=== PATIENT | female | born 1955 | race Caucasian/White ===

== ENCOUNTER 2020-06-18 11:03 | Emergency (ER) | payer OTHER, SELFPAY ==
[2020-06-18 11:10] VITALS: BP 128/75; PULSE 79; RESP 18; TEMP 36.3; O2SAT 97
--- NOTE | 2020-06-18 11:38 | PC.NURSE ---
This RN into pts room. Pt laying on bed crying. This RN asked pt what is going on and pt states I am just sad, having family issues . When asked what family issues are going on pt states that she has been taking care of her grandchildren while her daughter and son in law work. Pt states that has had increased concerns of catching COVID and made these concerns aware to her daughter and son in law. Per pt daughter and son in law flipped out and has decided to stop talking to them. Pt states she has been shunned by daughter. Pt states she feels like she doesn't have a good support system at home. PT states has offered to self isolate himself in basement in order of Pt to see her grandchildren but daughter has declined. PT has a daughter in [place] and a son in [place]. Pt states that she did not have intents of killing herself today but told God I know I am going to take some pills and drink some wine, if you want to take me fine but if you dont then i will understand . Pt states she is tired dont want to do it anymore Pt is crying and saying she wants to speak with Jose her soon. is at bedside and is tearful. Informed pt of process of getting pt medically cleared and calling out a manager of case to speak with pt. Pt states she understands. This RN asked pt if she wanted her in room and pt states yes, she does. Pt is placed in scrubs No sitter needed per [place] Suicide screening. Charge nurse informed of this
--- NOTE | 2020-06-18 11:54 | PC.NURSE ---
Spoke with Tk at poison control. Per Tk just supportive care is needed for this pt at this time.
--- NOTE | 2020-06-18 11:55 | PC.NURSE ---
While getting patient into green scrubs, was assisting. I explained all belongings need to removed from the room but he said it was critical they remained with him in the room. I saw he had a bottle of pills in his hand, trying to hide them while rummaging through his 's purse. Linette then slipped her cell phone under her leg. I told her she could not keep that in the room. The said he wanted to stay but that the belongings needed to stay with him. I go the charge nurse to explain the procedure, and the chose to leave with the belongings. I informed Aleksandra and Ani/nurse of what happened.
--- NOTE | 2020-06-18 12:14 | ECG_ITS ---
Measurements Intervals [place] Rate: 69 P: 33 MT: 167 QRS: -23 QRSD: 86 T: 17 QT: 408 QTc: 437 Interpretive Statements SINUS RHYTHM INCOMPLETE RIGHT BUNDLE BRANCH BLOCK DELAYED PRECORDIAL R/S TRANSITION BORDERLINE T WAVE ABNORMALITY- ANTERIOR LEADS BORDERLINE ECG Electronically Signed On 06-18-2020 13:37:29 CDT by Jordin Rosen D.O.
[2020-06-18 12:40] LABS: Basophils Percent Auto 0.6 % (0.2-1.2); Eosinophils Absolute Auto 0.5 K/mm3 (0-0.3); Eosinophils Percent Auto 7.9 % (0-4.4); Hemoglobin 14.3 g/dL (12.0-15.0); Immature Granulocyte Absolute 0.01 K/mm3 (0.00-0.031); Immature Granulocyte Percent A 0.2 % (0-0.5); Lymphocytes Absolute Auto 1.84 K/mm3 (0.9-3.2); Lymphocytes Percent Auto 29.7 % (18.3-44.2); Mean Corpuscular HGB Conc 32.5 g/dl (32-36); Mean Corpuscular Hemoglobin 29.7 pg (26-34); Mean Corpuscular Volume 91.3 fl (80-100); Mean Platelet Volume 9.1 fl (7.4-10.4); Monocytes Absolute Auto 0.4 K/mm3 (0.1-0.6); Monocytes Percent Auto 6.1 % (2.6-8.5); Neutrophils Absolute Auto 3.4 K/mm3 (1.3-6.7); Neutrophils Percent Auto 55.5 % (45.5-73.1); Platelet Count Result 295 k/mm3 (150-375); Red Blood Count 4.82 M/mm3 (4.2-5.4); Red Cell Distribution Width 12.4 % (11.5-14.5); White Blood Count 6.2 K/mm3 (4.5-10.0)
[2020-06-18 12:48] LABS: Add Urine Microscopic? YES; Appearance Urine Clear (Clear); Bilirubin Urine Negative (Negative); Blood Urine 1+ (Negative); Color Urine Colorless (Yellow); Glucose Urine UA Negative (Negative); Ketones Urine Negative (Negative); Leukocyte Esterase Ur 1+ LEU/UL (Negative); Nitrate Urine Negative (Negative); Protein Urine Negative (Negative); Squamous Epithelial Cell Urine Rare /hpf (Few); Urobilinogen Urine Negative mg/dL (<2.0); WBC Urine 0-3 /hpf
[2020-06-18 12:49] LABS: Acetaminophen < 10 ug/mL (10-30); Salicylate < 1.0 mg/dL (2-20); Specific Grav Ur 1.003 (1.001-1.035)
[2020-06-18 12:52] LABS: Alanine Aminotransferase 28 U/L (4-35); Albumin Level 4.9 g/dL (3.5-5.1); Alkaline Phosphatase 97 U/L (38-126); Anion Gap 11 mmol/L (8-16); Aspartate Amino Transferase 36 U/L (14-36); Bilirubin,Total 0.4 mg/dL (0.2-1.3); Blood Urea Nitrogen 13 mg/dL (7-17); Calcium 9.8 mg/dL (8.4-10.2); Carbon Dioxide 27 mmol/L (22-30); Chloride 106 mmol/L (98-107); Estimated CRCL calculation 64 ml/min; Estimated Glomerular Filt Rate > 60; Ethanol 103 mg/dL (<10); Glucose 90 mg/dL (65-105); Potassium 4.2 mmol/L (3.4-5.0); Sodium 144 mmol/L (137-145)
[2020-06-18 13:00] LABS: Amphetamine Screen Urine Negative (Negative); Barbiturate Screen Urine Negative (Negative); Benzodiazepines Screen Urine Positive (Negative); Cannabinoid Screen Urine Negative (Negative); Cocaine Screen Urine Negative (Negative); Methadone Screen Urine Negative (Negative); Opiate Screen Urine Negative (Negative); Phencyclidine Screen Urine Negative (Negative)
--- NOTE | 2020-06-18 13:02 | ED.PSYCH ---
HPI - Psych General Chief Complaint: Psychiatric Symptoms <Sandrine Louis MD - Last Filed: 06/19/20 23:24> Stated Complaint: lethargy <Sandrine Louis MD - Last Filed: 06/19/20 23:24> Time Seen by Provider: 06/18/20 12:11 <Sandrine Louis MD - Last Filed: 06/19/20 23:24> Source: patient <Sandrine Louis MD - Last Filed: 06/19/20 23:24> Mode of arrival: EMS <Sandrine Louis MD - Last Filed: 06/19/20 23:24> Limitations: no limitations <Sandrine Louis MD - Last Filed: 06/19/20 23:24> History of Present Illness HPI Narrative: This is a 64 year old female with history of anxiety who presents for evaluation of possible overdose. Patient states she has bee having family issues. Last night she took 5 tabs of her Xanax with the thought that she wanted to end things . She admits she wanted to end her life. She also reports taking a xanax tablet at 730 am and another at 9 am this morning with a glass of wine. Patient was found on floor by difficulty to arouse. Patient denies previous history of depression or suicide attempt. She reports she drinks 4 glasses of wine per day. <Sandrine Louis MD - Last Filed: 06/19/20 23:24> Related Data Home Medications: Home Medications Medication Instructions Recorded Confirmed dorzolamide 22.3 mg-timolol 6.8 1 drop EACH EYE BID 05/13/19 mg/mL eye drops latanoprost 0.005 % eye drops 1 drop EACH EYE DAILY 05/14/19 <Sandrine Louis MD - Last Filed: 06/19/20 23:24> Allergies/Adverse Reactions: Allergies Allergy/AdvReac Type Severity Reaction Status Date / Time levofloxacin Allergy Unknown unknown Verified 05/14/19 09:14 <Sandrine Louis MD - Last Filed: 06/19/20 23:24> Review of Systems Review of Systems: All systems reviewed & are unremarkable except as noted in HPI and below <Sandrine Louis MD - Last Filed: 06/19/20 23:24> [facility] Past Medical History Medical History: Medical History (Updated 06/18/20 @ 23:21 by Sandrine Louis MD) Anxiety <Sandrine Louis MD - Last Filed: 06/19/20 23:24> Surgical History Surgical History: Surgical History (Updated 06/18/20 @ 13:07 by Sandrine Louis MD) H/O tubal ligation <Sandrine Louis MD - Last Filed: 06/19/20 23:24> Family History Family History: Family History (Updated 11/05/14 @ 17:50 by DOCTOR UNKNOWN) Other Family history of pancreatic cancer <Sandrine Louis MD - Last Filed: 06/19/20 23:24> Social History Social History: Social History Smoking status: Never smoker Smoking end date: 02/06/78 Alcohol intake: current Substance use type: prescription drug <Sandrine Louis MD - Last Filed: 06/19/20 23:24> Exam Const: General: no acute distress and alert <Sandrine Louis MD - Last Filed: 06/19/20 23:24> Orientation/consciousness: patient oriented x3 <Sandrine Louis MD - Last Filed: 06/19/20 23:24> Eyes: EOM: EOMs intact bilaterally <Sandrine Louis MD - Last Filed: 06/19/20 23:24> Chest: Chest palpation & inspection: normal inspection of the chest <Sandrine Louis MD - Last Filed: 06/19/20 23:24> Resp: Effort & Inspection: normal respiratory effort and no retractions <Sandrine Louis MD - Last Filed: 06/19/20 23:24> Auscultation: clear to auscultation bilaterally <Sandrine Louis MD - Last Filed: 06/19/20 23:24> Cardio: Rate: regular rate and not bradycardic <Sandrine Louis MD - Last Filed: 06/19/20 23:24> Rhythm: regular rhythm <Sandrine Louis MD - Last Filed: 06/19/20 23:24> Heart sounds: no murmurs <Sandrine Louis MD - Last Filed: 06/19/20 23:24> GI: GI Palp: Yes Soft to palpation, No Tenderness to palpation present (GI) and No Guarding due to palpation present (GI) <Sandrine Louis MD - Last Filed: 06/19/20 23:24> Auscultation: normal bowel sounds <Sandrine Louis MD - Last Filed: 06/19/20 23:24> Skin: General skin exam
--- NOTE | 2020-06-18 14:22 | PC.NURSE ---
Tk from [place] poison control called wanting up date on pt.
[2020-06-18 15:46] LABS: Ethanol 35 mg/dL (<10)
--- NOTE | 2020-06-18 16:29 | PC.NURSE ---
Pt is medically cleared per Dr. Louis. Called crisis and spoke with Nga. Nga states she will contact a returned case inspector and let them know.
--- NOTE | 2020-06-18 18:08 | PC.NURSE ---
crisis here to see pt
[2020-06-18 19:58] VITALS: BP 145/76; PULSE 101; RESP 18; O2SAT 100
--- NOTE | 2020-06-18 20:55 | PC.NURSE ---
Contacted Poison control to get case number. Spoke with EVELYNE Chung at poison control, was given case number of #[id number].
--- NOTE | 2020-06-18 22:02 | PC.NURSE ---
pt accepted at [facility] pending COVID results. paperwork also faxed to [facility] for them to review.
--- NOTE | 2020-06-18 23:06 | PC.NURSE ---
brought more pt belongings. Another pt belongings bag labeled and stored in cabinet at this time.
--- NOTE | 2020-06-19 05:20 | PC.NURSE ---
Updated pt spouse.
--- NOTE | 2020-06-19 07:10 | PC.NURSE ---
Report received from EVELYNE Torres. Pt currently eating breakfast.
--- NOTE | 2020-06-19 08:11 | PC.NURSE ---
Call to pt's home at [phone] at request of patient to ask for glasses and bible be brought to her. Message left on identifying voicemail.
--- NOTE | 2020-06-19 09:45 | PC.NURSE ---
Pt asleep on stretcher.
--- NOTE | 2020-06-19 10:30 | PC.NURSE ---
Pt asked about delay, explained again that awaiting COVID swab.
--- NOTE | 2020-06-19 14:23 | PC.NURSE ---
Pt eating dinner tray. Denies other needs at present.
--- NOTE | 2020-06-19 16:00 | PC.NURSE ---
Pt status unchanged. Appears to be asleep on stretcher.
--- NOTE | 2020-06-19 17:11 | PC.NURSE ---
Pt continues to rest on stretcher. Denies needs at present. Continue to await covid result.
[2020-06-19 18:57] VITALS: BP 129/71; PULSE 56; RESP 16; O2SAT 95
--- NOTE | 2020-06-19 19:09 | PC.NURSE ---
Call to [facility] @ [phone]. States to call them if the covid test is negative and they possibly will take the patient.
--- NOTE | 2020-06-19 19:21 | PC.NURSE ---
Continue to await covid results. Report to EVELYNE Daly, to continue care.
[2020-06-19 19:37] LABS: SARS-CoV-2 RNA PCR Negative
--- NOTE | 2020-06-19 20:23 | PC.NURSE ---
spoke with ciera at [facility] they will accept pt pending insurance card copy and voluntary paperwork is received. they will fax it to us at this time.
--- NOTE | 2020-06-19 20:47 | PC.NURSE ---
verbal order from dr wood to enter night time medication doses, latanoprost, dorzolamide, escitalopram.
[2020-06-19] MEDS: ESCITALOPRAM OXALATE 10 MG TABLET PO (23:06)
[2020-06-19] MEDS: LATANOPROST 0.005% OP SOLN 2.5 ML BTL 1 DROP EACH EYE (23:07)
--- NOTE | 2020-06-19 23:14 | PC.NURSE ---
RN spoke with Bella @ [place] - rn to rn report [phone] vega accepting.
--- NOTE | 2020-06-19 23:21 | PC.NURSE ---
RN report given to EVELYNE BARNEY @ [facility]. Pt will be going to room 308-A, Dr. Paulson accepting physician at this time.
--- NOTE | 2020-06-20 01:39 | PC.NURSE ---
rn report given to [facility]. care of pt transferred to [facility] at this time. pt belongings x 2 bags given to [facility] warehouse delivery driver.
[2020-06-20 01:40] VITALS: BP 127/70; PULSE 70; RESP 16; TEMP 36.6; O2SAT 100
== END 2020-06-20 01:41 ==
PROVIDERS: General Practice; Emergency Provider Emergency Medicine; PCP Internal Medicine
DX: F32.9 Major depressive disorder, single episode, unspecified (principal); Z20.822 Contact with and (suspected) exposure to COVID-19; F41.9 Anxiety disorder, unspecified; I45.10 Unspecified right bundle-branch block; R94.31 Abnormal electrocardiogram [ECG] [EKG]
CPT/HCPCS: 36415; 80053; 80307; 81001; 84443; 85025; 93005; 99285; A9270; C9803; U0003; U0005

== ENCOUNTER → 2020-10-15 10:00 | Outpatient (CLI) | payer OTHER, SELFPAY ==
--- NOTE | ~2020-10-15 | MM_ITS ---
EXAMINATION: MM screening elizabeth BI w frandy HISTORY: Screening mammogram TECHNIQUE: Craniocaudal and mediolateral oblique 3-D tomosynthesis images were obtained and synthetic 2-D images were generated. CAD analysis was submitted and interpreted. COMPARISON: 04/17/2015, 04/04/2014 bilateral digital screening mammogram examinations BREAST PARENCHYMAL COMPOSITION: There are scattered areas of fibroglandular density. FINDINGS: There is no evidence of suspicious mass, calcification, or architectural distortion to sugg est malignancy in either breast. There has been no suspicious interval change. IMPRESSION: 1. No mammographic evidence of malignancy. 2. Recommend routine screening mammography in one year. BI-RADS Category 1: Negative Reviewed, dictated and finalized at location A.
== END ==
DX: Z12.31 Encounter for screening mammogram for malignant neoplasm of breast (principal)
CPT/HCPCS: 77063; 77067

== ENCOUNTER → 2021-07-27 10:21 | Outpatient (CLI) | payer MEDICARE, SELFPAY ==
--- NOTE | ~2021-07-27 | US_ITS ---
EXAMINATION: US soft tissue head and neck DATE: 07/27/2021 11:13 INDICATION: Left-sided neck mass TECHNIQUE: Multiple grayscale and Doppler ultrasound images of the thyroid and the region of concern at the left lateral base of the neck were obtained. COMPARISON: 11/28/2016 FINDINGS: The right thyroid lobe measures 4.2 x 1.3 x 1.6 cm. The left thyroid lobe measures 4.1 x 1.0 x 1.3 c m. There are a few subcentimeter nodules in both the left and right thyroid lobes which are wider th an tall with smooth margins. The largest measuring 6 cm in maximal diameter with anechoic with software computer specialist ior acoustic enhancement consistent with a benign TI RADS 1 nodule. The remainder all measuring <6 mm appear more hypoechoic likely due to their small size. Although also most likely representing cystic TI RADS 1 nodules, could not exclude a solid (TI-RADS 4, moderately suspicious , FNA if >=1.5 cm, an nual followup is >=1 cm) nodule. Normal appearance to the subcutaneous tissues at the region of the reported left neck mass with no ly mphadenopathy, abnormal masses or fluid collections identified. IMPRESSION: 1. No significant change in multiple small thyroid nodules likely but predominantly cystic and with n one meeting threshold for either biopsy or follow-up. 2. No abnormal masses or fluid collections identified at the region of concern at the left neck. Reviewed, dictated and finalized at location B. IMPRESSION: 1. No significant change in multiple small thyroid nodules likely but predomina ntly cystic and with none meeting threshold for either biopsy or follow-up. 2. No abnormal masses or fluid collections identified at the region of concern at the left neck.
--- NOTE | ~2021-07-27 | DEXA_ITS ---
Bone Density Report Name: BRENT STARR Age: 66 Sex: Female Ethnicity: White Date of : 1955 Indication: osteopenia; parental hip fracture; height loss; postmenopaual Referring Provider: TONG COYLE Study: Bone densitometry was performed. Exam Date: July 27, 2021 Accession number: [id number] Bone Density: Region BMD T-score Z-score Classification AP Spine (L1-L4) 0.846 -1.8 -0.1 Osteopenia Femoral Neck (Left) 0.767 -0.7 0.8 Normal Total Hip (Left) 0.841 -0.8 0.4 Normal Femoral Neck (Right) 0.736 -1.0 0.5 Normal Total Hip (Right) 0.894 -0.4 0.8 Normal Total Hip Mean 0.868 -0.6 0.6 Normal World Health Organization criteria for BMD impression classify patients as: Normal (T-score at or above -1.0), Osteopenia (T-score between -1.0 and -2.5), or Osteoporosis (T-score at or below -2.5). 10-year Fracture Risk(1): Major Osteoporotic Fracture 18% Hip Fracture 0.9% Reported Risk Factors: [place] (), Neck BMD=0.736, BMI=25.7, parental fracture, alcohol use (1) FRAX(R) Version 3.08. Fracture probability calculated for an untreated patient. Fracture probability may be lower if the patient has received treatment. Previous Exams: Region Exam Age BMD T-score BMD Change BMD Change Date g/cm2 vs Baseline vs Previous AP Spine(L1-L4) 07/27/2021 66 0.846 -1.8 -0.121* -0.036* 04/20/2018 62 0.882 -1.5 -0.085* -0.085* 05/05/2008 52 0.967 -0.7 Total Hip(Left) 07/27/2021 66 0.841 -0.8 -0.071* -0.017 04/20/2018 62 0.858 -0.7 -0.054* -0.054* 05/05/2008 52 0.912 -0.2 Total Hip(Right) 07/27/2021 66 0.894 -0.4 -0.083* -0.015 04/20/2018 62 0.909 -0.3 -0.067* -0.067* 05/05/2008 52 0.977 0.3 *Denotes significance at 95% confidence level, LSC for AP Spine = 0.022 g/cm2, LSC for Total Hip = 0.027 g/cm2 Clinical Information Provided by Patient: Parent has had a hip fracture Has 3 or more alcoholic drinks per day Has used the following medications: Vitamin D, Calcium, MTV Patient maximum height was 66 Menopause Age: 55 Drinks caffeinated beverages Onset of menses at age 17 Number of children 3 Impression: The patient has low bone mass, based on the Total Spine T-score. The patient has an estimated ten-year risk of hip fracture of 0.9% and an estimated ten-year risk of major fracture of 18%, based on the WHO FR
== END ==
PROVIDERS: PCP Internal Medicine; Visit Provider Internal Medicine
DX: Z78.0 Asymptomatic menopausal state (principal); R22.1 Localized swelling, mass and lump, neck; M85.88 Other specified disorders of bone density and structure, other site
CPT/HCPCS: 76536; 77080

== ENCOUNTER 2022-01-06 00:46 | Day surgery (SDC) | payer MEDICARE, SELFPAY ==
[2021-12-23 13:33] VITALS: BMI 24.9
[2022-01-06 07:07] VITALS: BP 140/72; PULSE 83; RESP 16; TEMP 36.1; O2SAT 98
[2022-01-06] MEDS: LACTATED RINGERS 1,000 ML 150 ML IV CONT (07:15)
--- NOTE | 2022-01-06 07:41 | WPDANESEPPF ---
Anes - Initial Pre Proc Eval Procedure: Operation Date: 01/06/22 08:00 Proposed Procedures p Colonoscopy - Sarath Fry MD Date/Time: 01/06/22 07:41 Surgeon: Sarath Fry MD Pre Op Diagnosis: melena, Hx of rectal polyp Patient Data Age: 66 Gender: F Height: 1.65 m Weight: 69.6 kg Last Vital Signs Temp 36.1 C L 01/06/22 07:07 Pulse 83 01/06/22 07:07 Resp 16 01/06/22 07:07 BP 140/72 01/06/22 07:07 Pulse Ox 98 01/06/22 07:07 O2 Del Method Room Air 01/06/22 07:07 Allergies Allergy/AdvReac Type Severity Reaction Status Date / Time levofloxacin Allergy Unknown unknown Verified 01/06/22 07:02 Home Medications Medication Instructions Recorded Confirmed Type dorzolamide 22.3 mg-timolol 6.8 1 drop ophthalmic (eye) BID 05/13/19 01/06/22 History mg/mL eye drops latanoprost 0.005 % eye drops 1 drop ophthalmic (eye) DAILY 05/14/19 12/23/21 History escitalopram oxalate 10 mg tablet See Rx Instructions .Route 03/09/20 01/06/22 Rx .COMPLEX #90 tabs buspirone 5 mg tablet 5 mg PO QHS 07/21/21 12/23/21 History cholecalciferol (vitamin D3) 25 25 mcg PO DAILY 07/21/21 01/06/22 History mcg (1,000 unit) capsule calcium carbonate 260 mg calcium 260 mg PO DAILY 11/18/21 01/06/22 History (648 mg) tablet multivitamin 1 tablet PO DAILY 11/18/21 01/06/22 History Patient hx anesthesia problems: none Family hx anesthesia problems: other (uncertain of issues) Results Review: All pre-operative results and documents have been reviewed as part of the pre-operative evaluation. [facility] Past Medical History Medical History Allergies Anxiety GERD (gastroesophageal reflux disease) Hx of migraines IBS (irritable bowel syndrome) Surgical History Surgical History H/O tubal ligation Family History Family History Father Pancreatic cancer Hypertension Diabetes mellitus Mother Hypertension Heart disease Grandparent Diabetes mellitus Depression Heart disease Breast cancer Other Family history of pancreatic cancer Social History Social History Smoking packs per day: 0.25 Smoking cigarettes per day: 5.0 Years smoked: 3 Smoking pack-years: 0.75 Smoking status: Never smoker Tobacco type: cigarettes Second hand tobacco smoke exposure: No Smoking end date: 02/06/78 Alcohol intake: current Drinks per week: 20 Alcohol use details: 3 GLASSES WINE PER DAY Substance use: never Substance use type: does not use Living arrangements: with family Spiritual care concerns: No Anes - Eval Final PreProcedure Day of Procedure 01/06/22 07:41 Patient weight: normal Heart: regular rate and rhythm Lungs: clear to auscultation Airway: Mallampati scale class II Neurological: alert and oriented Last oral intake: >/= 8 hours ASA classification: II Emergent: no Anesthetic plan: proceed Anesthesia type and monitoring: general GIVS and standard monitoring Results Review: All pre-operative results and documents have been reviewed as part of the pre-operative evaluation. Informed Consent: The patient's anesthetic plan and its attendant risks and benefits were discussed with the patient/family/POA. Questions were solicited and answers provided to the satisfaction of the patient/family/POA.
--- NOTE | 2022-01-06 08:05 | PM.HPGS ---
History of Present Illness History of Present Illness Consent: Risks, benefits, and alternatives have been discussed and questions answered. Patient agrees to proceed with procedure. Chief complaint: melena, Hx of rectal polyp Narrative: Linette Wilson is a 66 year old female Presents for screening colonoscopy. Patient has a history of rectal polyps 3 years ago. Patient also noted to have hemorrhoids at that time. Polyps were a tubular adenoma, benign polyp. Family history is significant both mother and father have had colon polyps. Patient presents today for screening colonoscopy. She intermittently has had bright red blood per rectum. Most recent episode several months ago. This has been attributed to hemorrhoids. Family history as stated. Review of Systems Review of Systems: Review of systems noncontributory. [facility] Past Medical History Medical History Allergies Anxiety GERD (gastroesophageal reflux disease) Hx of migraines IBS (irritable bowel syndrome) Surgical History Surgical History H/O tubal ligation Family History Family History Father Pancreatic cancer Hypertension Diabetes mellitus Mother Hypertension Heart disease Grandparent Diabetes mellitus Depression Heart disease Breast cancer Other Family history of pancreatic cancer Social History Social History Smoking packs per day: 0.25 Smoking cigarettes per day: 5.0 Years smoked: 3 Smoking pack-years: 0.75 Smoking status: Never smoker Tobacco type: cigarettes Second hand tobacco smoke exposure: No Smoking end date: 02/06/78 Alcohol intake: current Drinks per week: 20 Alcohol use details: 3 GLASSES WINE PER DAY Substance use: never Substance use type: does not use Living arrangements: with family Spiritual care concerns: No Meds Home Medications and Allergies Home Medications Medication Instructions Recorded Confirmed Type dorzolamide 22.3 mg-timolol 6.8 1 drop ophthalmic (eye) BID 05/13/19 01/06/22 History mg/mL eye drops latanoprost 0.005 % eye drops 1 drop ophthalmic (eye) DAILY 05/14/19 12/23/21 History escitalopram oxalate 10 mg tablet See Rx Instructions .Route 03/09/20 01/06/22 Rx .COMPLEX #90 tabs buspirone 5 mg tablet 5 mg PO QHS 07/21/21 12/23/21 History cholecalciferol (vitamin D3) 25 25 mcg PO DAILY 07/21/21 01/06/22 History mcg (1,000 unit) capsule calcium carbonate 260 mg calcium 260 mg PO DAILY 11/18/21 01/06/22 History (648 mg) tablet multivitamin 1 tablet PO DAILY 11/18/21 01/06/22 History Allergies Allergy/AdvReac Type Severity Reaction Status Date / Time levofloxacin Allergy Unknown unknown Verified 01/06/22 07:02 Vital Signs Vital Signs - 24 hr 01/06/22 07:07 Temperature 97.0 F L Pulse Rate 83 Respiratory Rate 16 Blood Pressure 140/72 Pulse Oximetry 98 Oxygen Delivery Room Air Exam Narrative: Physical exam reveals patient to be alert. Vital signs stable. HEENT exam is unremarkable. Patient is anicteric. Lungs are clear to auscultation and percussion. Heart is without murmur or extra sounds. Abdomen bowel sounds are present soft nontender with no organomegaly. Digital external rectal exam is normal. Assessment and Plan Assessment and plan (1) Screening for colon cancer: Code(s): Z12.11 - Encounter for screening for malignant neoplasm of colon Status: Acute Assessment and Plan: Patient presents today for screening colonoscopy. She has a prior history of tubular adenomatous colon polyp 2019. Family history is significant both mother and father have had colon polyps. Patient has occasionally have bright red blood per rectum attributed to hemorrhoids. Plan for high-fiber di
[2022-01-06 08:43] VITALS: BP 117/59; PULSE 69; RESP 26; O2SAT 94
[2022-01-06 08:53] VITALS: BP 113/59; PULSE 65; RESP 19; O2SAT 99
[2022-01-06 09:03] VITALS: BP 126/63; PULSE 70; RESP 18; O2SAT 100
== END 2022-01-06 09:20 | disposition home or self-care (01) ==
PROVIDERS: PCP Family Medicine; Visit Provider Internal Medicine Gastroenterology
PROC: 0DJD8ZZ Inspection of Lower Intestinal Tract, Via Natural or Artificial Opening Endoscopic (ICD-10-PCS; CPT 45378; principal; 2022-01-06 08:00)
DX: Z12.11 Encounter for screening for malignant neoplasm of colon (principal); K64.8 Other hemorrhoids; K57.30 Diverticulosis of large intestine without perforation or abscess without bleeding; K92.1 Melena; Z83.71 Family history of colonic polyps; Z86.010 Personal history of colon polyps; F41.9 Anxiety disorder, unspecified; Z87.891 Personal history of nicotine dependence
CPT/HCPCS: G0105; J2704; J7120

== ENCOUNTER 2022-02-16 17:25 | Emergency (ER) | payer MEDICARE, SELFPAY ==
--- NOTE | ~2022-02-16 | XR_ITS ---
EXAM: XR knee LT 2V DATE: 02/16/2022 17:57 HISTORY: KNEE PAIN, NO INJURY, WOKE UP IN PAIN, SEVERE . COMPARISON: None available. FINDINGS: Decreased mineralization. No fracture or dislocation. No lytic or blastic lesion. Mild tri compartmental osteoarthritis of the left knee. No erosion or periosteal change. Soft tissues within n ormal limits. IMPRESSION: No acute osseous finding in the left knee. Reviewed, dictated and finalized at location K. N AGENT
[2022-02-16 17:34] VITALS: BP 140/71; PULSE 114; RESP 20; TEMP 37.3; O2SAT 98
--- NOTE | 2022-02-16 17:50 | ED.LOWEXIN ---
HPI - Extremity Injury (Lower) General Chief Complaint: Extremity Injury, Lower Stated Complaint: L KNEE PAIN Time Seen by Provider: 02/16/22 17:50 Source: patient, RN notes reviewed and old records reviewed Mode of arrival: ambulatory Limitations: no limitations History of Present Illness HPI Narrative: 66-year-old female who presents to [facility] with complaints of pain to her left knee which started about 1 hour after she went to bed last night making it difficult to get any rest. Patient reports that went up and down some steps yesterday taking some Glide ornaments down but denies any injury to her knee. Patient reports that when she woke up this morning she had a temperature of 100F and she can hardly bend knee and increased pain with any movement. Patient has palpable acute tenderness to the medial aspect of her left knee and some warmth but no acute redness or any streaking of redness up leg. Patient reports that she took dual action medication that contains Ibuprofen and Tylenol at 0930 this morning. Patient denies any cough sore throat ,congestion, nausea ,vomiting or diarrhea or any body aches. Patient does drink wine daily denies any history of gout. MD complaint: other (left medial knee pain) Onset (ago): day(s) (last night ) Severity scale (1-10): 9 Treatments prior to arrival: NSAIDS and other (Tylenol medication) Related Data Home Medications Medication Instructions Recorded Confirmed latanoprost 0.005 % eye drops 1 drop ophthalmic (eye) DAILY 05/14/19 02/16/22 cholecalciferol (vitamin D3) 25 25 mcg PO DAILY 07/21/21 02/16/22 mcg (1,000 unit) capsule multivitamin 1 tablet PO DAILY 11/18/21 02/16/22 Allergies Allergy/AdvReac Type Severity Reaction Status Date / Time levofloxacin Allergy Unknown unknown Verified 02/16/22 19:06 Review of Systems Review of Systems: CONSTITUTIONAL: reports low grade fever of 100F, no chills, or sweats. EYES: Denies visual changes, redness, or discharge. ENT: Denies rhinorrhea, congestion, sore throat, or otalgia. CARDIOVASCULAR: Denies chest pain, palpitations, or edema. RESPIRATORY: Denies cough or dyspnea. GASTROINTESTINAL: Denies abdominal pain, nausea, vomiting, or diarrhea. GENITOURINARY: Denies dysuria or hematuria. SKIN: Denies rash or itching. MUSCULOSKELETAL: Denies back pain, positive for pain to the medial aspect of left knee especially on bending of knee, palpation of medial knee area with warmth noted. NEUROLOGIC: Denies headache, numbness, or weakness. PSYCHIATRIC: Denies anxiety or depression. All systems reviewed & are unremarkable except as noted in HPI and below PMFSH Past Medical History Medical History Allergies Anxiety GERD (gastroesophageal reflux disease) Hx of migraines IBS (irritable bowel syndrome) Surgical History Surgical History H/O tubal ligation Family History Family History Father Pancreatic cancer Hypertension Diabetes mellitus Mother Hypertension Heart disease Grandparent Diabetes mellitus Depression Heart disease Breast cancer Other Family history of pancreatic cancer Social History Social History Smoking packs per day: 0.25 Smoking cigarettes per day: 5.0 Years smoked: 3 Smoking pack-years: 0.75 Smoking status: Never smoker Tobacco type: cigarettes Second hand tobacco smoke exposure: No Smoking end date: 02/06/78 Alcohol intake: current Drinks per week: 20 Alcohol use details: 3 GLASSES WINE PER DAY Substance use: never Substance use type: does not use Spiritual care concerns: No Comments At time of signature, agree with nursing past medical, surgical, social and family history. There is no relevant family history pertinent to the presenting complaint
[2022-02-16 18:30] VITALS: PULSE 110; RESP 18; O2SAT 99
== END 2022-02-16 18:30 | disposition short-term general hospital (02) ==
PROVIDERS: Emergency Provider Registered Nurse; PCP Family Medicine
DX: M25.562 Pain in left knee (principal); Z87.891 Personal history of nicotine dependence; K21.9 Gastro-esophageal reflux disease without esophagitis; M10.9 Gout, unspecified
CPT/HCPCS: 73560; 99213; G0463

== ENCOUNTER 2022-02-16 19:00 | Emergency (ER) | payer MEDICARE, SELFPAY ==
[2022-02-16 19:02] VITALS: BP 150/81; PULSE 103; RESP 18; TEMP 36.6; O2SAT 98
[2022-02-16 19:35] VITALS: BP 133/91; PULSE 92; RESP 18; O2SAT 98
[2022-02-16] MEDS: LIDOCAINE 5% PATCH 1 PATCH TRANSDERM (20:00)
[2022-02-16] MEDS: KETOROLAC 30 MG/ML VIAL (*BKC) IM (20:02)
--- NOTE | 2022-02-16 20:12 | ED.EXTPRO ---
HPI - Extremity Problem General Chief complaint: Extremity Problem,Nontraumatic Stated complaint: knee pain Time Seen by Provider: 02/16/22 19:30 History of Present Illness HPI Narrative: Patient presents after being sent from urgent care for further evaluation of her left knee pain, that already obtained an x-ray which was negative but sent her here due to their concern for possible septic knee (?). Patient denies any recent use other than she did use it quite a bit recently climbing, no swelling or redness of the knee. She took Advil at home with improvement in her symptoms. Worse when she walks Related Data Home Medications Medication Instructions Recorded Confirmed latanoprost 0.005 % eye drops 1 drop ophthalmic (eye) DAILY 05/14/19 02/16/22 cholecalciferol (vitamin D3) 25 25 mcg PO DAILY 07/21/21 02/16/22 mcg (1,000 unit) capsule multivitamin 1 tablet PO DAILY 11/18/21 02/16/22 Allergies Allergy/AdvReac Type Severity Reaction Status Date / Time levofloxacin Allergy Unknown unknown Verified 02/16/22 19:35 Review of Systems Review of Systems: CONST: Some chills at home HEENT: No sore throat C/V: No chest pain RESP: No cough GI: No nausea or vomiting : No dysuria. M/S: Knee pain SKIN: No rash. NEURO: [No headache or focal numbness or weakness] PSYCH: [No depression] [facility] Past Medical History Medical History Allergies Anxiety GERD (gastroesophageal reflux disease) Hx of migraines IBS (irritable bowel syndrome) Surgical History Surgical History H/O tubal ligation Family History Family History Father Pancreatic cancer Hypertension Diabetes mellitus Mother Hypertension Heart disease Grandparent Diabetes mellitus Depression Heart disease Breast cancer Other Family history of pancreatic cancer Social History Social History Smoking packs per day: 0.25 Smoking cigarettes per day: 5.0 Years smoked: 3 Smoking pack-years: 0.75 Smoking status: Never smoker Tobacco type: cigarettes Second hand tobacco smoke exposure: No Smoking end date: 02/06/78 Alcohol intake: current Drinks per week: 20 Alcohol use details: 3 GLASSES WINE PER DAY Substance use: never Substance use type: does not use Spiritual care concerns: No Exam Narrative: EXAMINATION OF ORGAN SYSTEMS/BODY AREAS: Constitutional: Vital signs per nursing GENERAL:[No acute distress, non-toxic appearing.] Resting comfortably in bed HEAD: Normal with no signs of head trauma. EYES: EOMI, conjunctiva normal ENT: Hearing grossly intact LUNGS: Nonlabored breathing. HEART: [Regular rate and rhythm] ABD: No distention EXT: Full non-painful range of motion of knee; NVI. Some tenderness to palpation of medial knee without any overlying skin changes. SKIN: [No rashes or lesions.] NEURO: [Alert and oriented x 3. No gross focal sensory or strength deficits.] PSYCH: Normal affect Course Vital Signs Vital signs: Vital Signs Temperature 97.9 F 02/16/22 19:02 Pulse Rate 103 H 02/16/22 19:02 Respiratory Rate 18 02/16/22 19:02 Blood Pressure 150/81 H 02/16/22 19:02 Pulse Oximetry 98 02/16/22 19:02 Oxygen Delivery Room Air 02/16/22 19:02 Temperature 97.9 F 02/16/22 19:02 Pulse Rate 85 02/16/22 20:57 Respiratory Rate 18 02/16/22 20:57 Blood Pressure 128/71 02/16/22 20:57 Pulse Oximetry 96 02/16/22 20:57 Oxygen Delivery Room Air 02/16/22 19:35 MDM - Extremity (Nontraumatic) MDM Narrative Medical decision making narrative: 66-year-old female presenting here with left knee pain, vital signs stable, she is afebrile here, able to ambulate albeit with pain, on exam she does have some tenderness palpation to the medial knee, however full range of motion without any
[2022-02-16] MEDS: predniSONE 20 MG TABLET 40 MG PO (20:42)
[2022-02-16 20:57] VITALS: BP 128/71; PULSE 85; RESP 18; O2SAT 96
== END 2022-02-16 20:59 | disposition home or self-care (01) ==
PROVIDERS: Emergency Provider Emergency Medicine; PCP Family Medicine
DX: M25.562 Pain in left knee (principal); K21.9 Gastro-esophageal reflux disease without esophagitis; K58.9 Irritable bowel syndrome, unspecified; Z87.891 Personal history of nicotine dependence
CPT/HCPCS: 73560; 96372; 99283; A9270; J1885; J7512

== ENCOUNTER 2022-05-18 11:48 | Emergency (ER) | payer MEDICARE, SELFPAY ==
--- NOTE | ~2022-05-18 | CT_ITS ---
EXAMINATION: CT abdomen pelvis w con DATE: 05/18/2022 13:39 INDICATION: Left lower quadrant abdominal pain. Blood in stool. TECHNIQUE: Computed tomography (CT) of the abdomen and pelvis was performed with 100 mL Omnipaque 350 intravenous contrast. Automated exposure control and iterative reconstruction technique were employe d. The dose-length product was 437.00 mGy-cm. COMPARISON: None. FINDINGS: The visualized portions of the lung bases demonstrate mild atelectasis. No pleural effusion . The heart size is normal. No pericardial effusion. There is diffuse hepatic steatosis. The gallblad gayle and spleen are normal. There are cysts in the kidneys including peripelvic cysts measuring up to 1.4 cm in the left. There are no dilated loops of bowel. There are scattered diverticula in the colon . There is wall thickening of descending colon, consistent with colitis. The appendix is normal. Ther e are no pathologically enlarged lymph nodes. There is no free intraperitoneal fluid. There is no sig nificant stenosis of celiac axis, superior mesenteric artery, or inferior mesenteric artery. There is severe thoracic spondylosis and mild lumbar spondylosis. IMPRESSION: 1. Colitis involving descending colon. Reviewed, dictated and finalized at location A.
[2022-05-18 12:15] VITALS: BP 146/80; PULSE 78; RESP 16; TEMP 36.9; O2SAT 99
[2022-05-18 12:33] LABS: Basophils Absolute Auto 0.1 K/mm3 (0.0-0.1); Basophils Percent Auto 0.6 % (0.2-1.2); Eosinophils Absolute Auto 0.3 K/mm3 (0-0.3); Hematocrit 45.2 % (37.0-47.0); Hemoglobin 14.7 g/dL (12.0-15.0); Immature Granulocyte Absolute 0.06 K/mm3 (0.00-0.031); Immature Granulocyte Percent A 0.6 % (0-0.5); Lymphocytes Absolute Auto 1.64 K/mm3 (0.9-3.2); Lymphocytes Percent Auto 15.5 % (18.3-44.2); Mean Corpuscular HGB Conc 32.5 g/dl (32-36); Mean Corpuscular Hemoglobin 29.9 pg (26-34); Mean Corpuscular Volume 92.1 fl (80-100); Mean Platelet Volume 9.2 fl (7.4-10.4); Monocytes Absolute Auto 0.5 K/mm3 (0.1-0.6); Monocytes Percent Auto 5.1 % (2.6-8.5); Neutrophils Percent Auto 75.2 % (45.5-73.1); Platelet Count Result 296 k/mm3 (150-375); Red Blood Count 4.91 M/mm3 (4.2-5.4); Red Cell Distribution Width 13.4 % (11.5-14.5); White Blood Count 10.6 K/mm3 (4.5-10.0)
[2022-05-18 12:44] LABS: Alanine Aminotransferase 56 U/L (6-35); Alkaline Phosphatase 147 U/L (38-126); Anion Gap 10 mmol/L (8-16); Aspartate Amino Transferase 43 U/L (14-36); Bilirubin,Total 0.8 mg/dL (0.2-1.3); Blood Urea Nitrogen 13 mg/dL (7-17); Calcium 9.5 mg/dL (8.4-10.2); Carbon Dioxide 24 mmol/L (22-30); Chloride 107 mmol/L (98-107); Estimated CRCL calculation 71 ml/min; Estimated Glomerular Filt Rate > 60; Glucose 106 mg/dL (65-110); Potassium 3.8 mmol/L (3.4-5.0); Sodium 141 mmol/L (137-145)
[2022-05-18 12:46] LABS: Prothrombin Time 12.7 Seconds (11.1-14.7)
[2022-05-18 12:47] LABS: Partial Thromboplastin Time 25.8 SECONDS (22.3-36.8)
--- NOTE | 2022-05-18 13:18 | ED.GIBLEED ---
HPI - GI Bleed General Chief complaint: GI Bleed Stated complaint: vaginal bleeding/cramping Time Seen by Provider: 05/18/22 13:04 History of Present Illness HPI Narrative: 66-year-old female here for evaluation of rectal bleeding x1 day. Patient states that she has noticed bright red blood mixed in with her stools in addition to some pink blood clots. Patient does not take blood thinners, reports that she has had some blood in her stool in the past but never this amount. Previously attributed to internal hemorrhoids. She states that over the past 2 days she has had some diffuse abdominal cramping, worse in the left lower quadrant. She had a colonoscopy by Dr. Fry 4 months ago that revealed diverticulosis and internal hemorrhoids but no other acute findings. No fever, diarrhea, constipation, nausea, or vomiting. Related Data Home Medications Medication Instructions Recorded Confirmed latanoprost 0.005 % eye drops 1 drop ophthalmic (eye) DAILY 05/14/19 03/02/22 cholecalciferol (vitamin D3) 25 25 mcg PO DAILY 07/21/21 03/02/22 mcg (1,000 unit) capsule multivitamin 1 tablet PO DAILY 11/18/21 03/02/22 calcium carbonate 600 mg calcium 600 mg PO DAILY 02/24/22 03/02/22 (1,500 mg) tablet (Calcium) Allergies Allergy/AdvReac Type Severity Reaction Status Date / Time levofloxacin Allergy Unknown unknown Verified 05/18/22 12:45 Review of Systems Review of Systems: Gen.: Denies fevers or chills Eyes: Denies eye pain or visual change ENT: Denies congestion Respiratory: Denies shortness of breath or cough CV: Denies chest pain or palpitations GI: Reports blood in stool, abdominal pain denies burning, urgency, frequency or hematuria Musculoskeletal: Denies back pain or muscle pain Neuro: Denies numbness, tingling, weakness or focal weakness Skin: Denies rash Except as documented, all other systems reviewed and negative [facility] Past Medical History Medical History Allergies Anxiety COVID-19 vaccine series completed GERD (gastroesophageal reflux disease) Hx of migraines IBS (irritable bowel syndrome) Surgical History Surgical History H/O tubal ligation Family History Family History Father Pancreatic cancer Hypertension Diabetes mellitus Mother Hypertension Heart disease Grandparent Diabetes mellitus Depression Heart disease Breast cancer Other Family history of pancreatic cancer Social History Social History (Updated 02/24/22 @ 09:46 by Jamarcus Crawford MA) Social History: Former smoker from 19 years old to 22 years old Smoking packs per day: 0.25 Smoking cigarettes per day: 5.0 Years smoked: 3 Smoking pack-years: 0.75 Smoking status: Former smoker Tobacco type: cigarettes Second hand tobacco smoke exposure: No Smoking end date: 02/06/78 Alcohol intake: current Drinks per week: 20 Alcohol use details: 3 GLASSES WINE PER DAY Substance use: never Substance use type: does not use Lack of Transportation: No Lack of Food: Never True Current Housing: I Have Housing Concerned About Future Housing: No Difficulty Paying Gas/Electric Bills: No Difficulty Paying for Meds: No Currently Unemployed: No Education: Master's Degree or Higher Difficulty w/ Childcare or Family Care: No Living arrangements: with family Spiritual care concerns: No Exam Narrative: APPEARANCE: Well appearing, no pain in distress, well-nourished. Head: Normocephalic and atraumatic. EYES: PERRLA/EOMI, conjunctivae clear NOSE: No nasal drainage EARS: External ear normal in appearance THROAT: Oropharynx is clear. Mucous membranes are moist. NECK: Supple. No adenopathy, no masses. RESPIRATORY: Airway patent, respirations nonlabored. Clear to auscultation bilaterally, no rales, rhonchi,
[2022-05-18 17:46] VITALS: PULSE 75; RESP 17; O2SAT 95
== END 2022-05-18 14:45 | disposition home or self-care (01) ==
PROVIDERS: Emergency Medicine; Emergency Provider Physician Assistant; PCP Family Medicine
DX: K52.9 Noninfective gastroenteritis and colitis, unspecified (principal); K58.9 Irritable bowel syndrome, unspecified; K21.9 Gastro-esophageal reflux disease without esophagitis; Z87.891 Personal history of nicotine dependence
CPT/HCPCS: 36415; 74177; 80053; 85025; 85610; 85730; 86850; 86900; 86901; 99284; Q9967

== ENCOUNTER → 2022-06-01 13:36 | Outpatient (CLI) | payer MEDICARE, SELFPAY ==
--- NOTE | ~2022-06-01 | MM_ITS ---
EXAMINATION: MM screening elizabeth BI w frandy HISTORY: Screening mammogram TECHNIQUE: Craniocaudal and mediolateral oblique 3-D tomosynthesis images were obtained and synthetic 2-D images were generated. CAD analysis was submitted and interpreted. COMPARISON: 10/15/2020, 04/17/2015, 04/04/2014 bilateral screening mammogram examinations BREAST PARENCHYMAL COMPOSITION: There are scattered areas of fibroglandular density. FINDINGS: There is no evidence of suspicious mass, calcification, or architectural distortion to sugg est malignancy in either breast. There has been no suspicious interval change. IMPRESSION: 1. No mammographic evidence of malignancy. 2. Recommend routine screening mammography in one year. BI-RADS Category 1: Negative Reviewed, dictated and finalized at location A.
== END ==
PROVIDERS: PCP Family Medicine; Visit Provider Family Medicine
DX: Z12.31 Encounter for screening mammogram for malignant neoplasm of breast (principal)
CPT/HCPCS: 77063; 77067

== ENCOUNTER 2023-09-09 08:36 | Emergency (ER) | payer MEDICARE, OTHER, SELFPAY ==
--- NOTE | ~2023-09-09 | XR_ITS ---
EXAMINATION: XR knee LT min 4V DATE: 09/09/2023 10:02 INDICATION: Left knee pain and swelling. TECHNIQUE: 4 views of left knee were obtained. COMPARISON: Left knee radiographs 02/16/2022 FINDINGS: Bone alignment is normal. No fracture. There is mild osteoarthritis of the lateral and zambrano llofemoral compartments. No knee joint effusion. IMPRESSION: 1. Mild left knee osteoarthritis. Reviewed, dictated and finalized at location A.
--- NOTE | 2023-09-09 08:39 | ED.LOWEXIN ---
HPI - Extremity Injury (Lower) General Chief Complaint: Extremity Injury, Lower Stated Complaint: Left Knee Pain Time Seen by Provider: 09/09/23 09:35 Source: patient and RN notes reviewed Mode of arrival: ambulatory Limitations: no limitations History of Present Illness HPI Narrative: 68-year-old female reports left knee pain for 1 month. Reports she felt a pop while walking in her knee gave out since then she has been having medial pain and swelling. She reports it feels unstable. She denies any direct injury or trauma. She reports similar pain 1 year ago for which she was seen in the emergency room and had a normal x-ray at that time. She has not seen an ortho pediatric surgeon for this symptom. She has not taken any ibuprofen. She has been using ice and a knee brace she denies redness, warmth, open skin MD complaint: knee injury Related Data Home Medications Medication Instructions Recorded Confirmed latanoprost 0.005 % eye drops 1 drop ophthalmic (eye) DAILY 05/14/19 09/09/23 cholecalciferol (vitamin D3) 25 25 mcg PO DAILY 07/21/21 09/09/23 mcg (1,000 unit) capsule multivitamin 1 tablet PO DAILY 11/18/21 09/09/23 calcium carbonate (Calcium 600) 600 mg PO DAILY 02/24/22 09/09/23 Allergies Allergy/AdvReac Type Severity Reaction Status Date / Time levofloxacin Allergy Unknown Hallucinati Verified 09/09/23 08:45 ng Review of Systems Review of Systems: CONSTITUTIONAL: Denies malaise, chills, sweats, or fever. SKIN: Denies rash or itching, open skin, laceration, abrasion, redness, warmth MUSCULOSKELETAL: Reports left knee pain and swelling NEUROLOGIC: Denies numbness, weakness All systems reviewed & are unremarkable except as noted in HPI and below PMFSH Past Medical History Medical History Allergies Anxiety COVID-19 vaccine series completed GERD (gastroesophageal reflux disease) Hx of migraines IBS (irritable bowel syndrome) Surgical History Surgical History H/O neck surgery tumor on back of neck removed H/O tubal ligation Hx of foot surgery club foot as a child Family History Family History Father Pancreatic cancer Hypertension Diabetes mellitus Mother Hypertension Heart disease Grandparent Diabetes mellitus Depression Heart disease Breast cancer Other Family history of pancreatic cancer Social History Social History (Updated 04/07/23 @ 09:01 by Ling Mercado MA) Social History: Former smoker from 19 years old to 22 years old Smoking packs per day: 0.25 Smoking cigarettes per day: 5.0 Years smoked: 3 Smoking pack-years: 0.75 Smoking status: Former smoker Tobacco type: cigarettes Second hand tobacco smoke exposure: No Smoking end date: 02/06/78 Alcohol intake: current Drinks per week: 14 Alcohol use details: 2 GLASSES WINE PER DAY Substance use: never Substance use type: does not use Do You Feel Safe in your Home?: Yes Lack of Transportation: No Lack of Food: Never True Current Housing: I Have Housing Concerned About Future Housing: No Difficulty Paying Gas/Electric Bills: No Difficulty Paying for Meds: No Currently Unemployed: No Education: Master's Degree or Higher Difficulty w/ Childcare or Family Care: No Living arrangements: with family Additional living arrangements comments: with mother Occupation/Education: retired Gender identity (if verbalized by the patient): Female Sexual Orientation (if Verbalized by the Patient): Straight or Heterosexual Spiritual care concerns: No Comments At time of signature, agree with nursing past medical, surgical, social and family history. There is no relevant family history pertinent to the presenting complaint Exam Narrative: GENERAL: Well-appearing, well-nourished, and
[2023-09-09 08:56] VITALS: BP 131/79; PULSE 67; RESP 16; TEMP 36.4; O2SAT 97
== END 2023-09-09 10:11 | disposition home or self-care (01) ==
PROVIDERS: Emergency Provider Nurse Practitioner; PCP Family Medicine
DX: M25.562 Pain in left knee (principal); K21.9 Gastro-esophageal reflux disease without esophagitis
CPT/HCPCS: 73564; 99213; G0463

== ENCOUNTER 2023-10-26 10:09 | Outpatient (CLI) | payer MEDICARE, OTHER, SELFPAY ==
--- NOTE | ~2023-10-26 | MM_ITS ---
EXAMINATION: MM screening elizabeth BI w frandy HISTORY: Screening mammogram TECHNIQUE: Craniocaudal and mediolateral oblique 3-D tomosynthesis images were obtained and synthetic 2-D images were generated. CAD analysis was submitted and interpreted. COMPARISON: 06/01/2022, 10/15/2020 BREAST PARENCHYMAL COMPOSITION:Not Dense. There are scattered areas of fibroglandular density. FINDINGS: No suspicious mass, calcification, or architectural distortion are identified in either prosper ast to suggest malignancy. There has been no suspicious interval change. IMPRESSION: No mammographic evidence of malignancy. Recommend routine screening mammography in one year. BI-RADS Category 1: Negative Reviewed, dictated and finalized at location .
== END 2023-10-26 10:10 | disposition home or self-care (01) ==
PROVIDERS: PCP Family Medicine; Visit Provider Family Medicine
DX: Z12.31 Encounter for screening mammogram for malignant neoplasm of breast (principal)
CPT/HCPCS: 77063; 77067

== ENCOUNTER 2024-02-20 15:00 | Emergency (ER) | payer MEDICARE, OTHER, SELFPAY ==
[2024-02-20] VITALS (7 sets, daily range): BP systolic 110–164; BP diastolic 65–96; PULSE 79–88; RESP 15–20; TEMP 37.1–37.3; O2SAT 95–100
--- NOTE | ~2024-02-20 | CT_ITS ---
CT brain wo con Ordering provider: Citlaly Tabares PA-C History: 68 years Female with . fall . Comparison: None. Technique: CT of the head without contrast. Radiation reduction technique utilized. The dose-length product was 605.33 mGy-cm. FINDINGS: BRAIN PARENCHYMA AND CSF SPACES: No midline shift, mass effect or hemorrhage. The brain parenchyma a nd CSF spaces are otherwise normal. VISUALIZED PARANASAL SINUSES: Right maxillary sinus disease. Bilateral ethmoid sinus disease. Right n zari septal deviation. MASTOIDS: Well aerated. BONES: The bones appear intact. SOFT TISSUES: Visualized nasopharynx is normal. Superficial soft tissues are normal. IMPRESSION: No acute intracranial findings. Reviewed, dictated and finalized at location A. CLERK
--- NOTE | ~2024-02-20 | XR_ITS ---
XR wrist LT min 3V Ordering provider: Citlaly Tabares PA-C History: . fall . Comparison: None. FINDINGS: BONES: Nondisplaced fracture in the distal metaphysis of the left radius with extension to the joint space. Bony fragment is seen posteriorly suggestive of a triquetral bone fracture. JOINT SPACES: Bilateral the metacarpal bone over the distal carpal bones is seen which may indicate s ubluxation. Clinical correlation advised. SOFT TISSUES: Soft tissue swelling is seen posteriorly. IMPRESSION: Nondisplaced fracture in the distal metaphysis of the left radius. Highly suggestive triquetral fract ure. Reviewed, dictated and finalized at location A. E MOUNTER IMPRESSION: Nondisplaced fracture in the distal metaphysis of the left radius. Highly sugge stive triquetral fracture.
--- NOTE | ~2024-02-20 | CT_ITS ---
EXAMINATION: CT cervical spine wo con DATE: 02/20/2024 16:44 INDICATION: Fall from step ladder TECHNIQUE: Computed tomography (CT) of the cervical spine was performed without intravenous contrast. Automated exposure control and iterative reconstruction technique were employed. The dose-length pro duct was 323.98 mGy-cm. COMPARISON: None FINDINGS: Mild reversal of the normal cervical lordosis. Vertebral body heights are normal. No acute fracture. Severe osteoarthritis at the atlantoaxial articulation. Moderate disc height loss at C2-C3, C4-C5 and C5-C6 and mild disc height loss at C3-C4. Posterior disc osteophyte complexes contributing to mild c entral canal stenosis at C3-4 C5 and C5-C6. There is severe uncovertebral osteoarthritis bilaterally at both of these levels as well as on the left at C2-C3. There is also severe facet osteoarthritis on the right at C2-C3 and C7-T1 and on the left at C3-C4. Mild to moderate facet osteoarthritis at many of the remaining cervical levels. There is moderate neural foraminal stenosis on the right at C4-C5 and C5-C6 and on the left at C3-C4 and C4-C5. Mild neural from stenosis. Additional cervical neural f oramina. Cervical soft tissues are unremarkable. Mild biapical pleural-parenchymal scarring. IMPRESSION: 1. Moderate cervical spondylosis with no acute osseous abnormality. Reviewed, dictated and finalized at location B. EST CONTRACTOR
--- NOTE | ~2024-02-20 | CT_ITS ---
EXAMINATION: CT chst ab pel thor lum w DATE: 02/20/2024 16:52 INDICATION: Chest pain post fall TECHNIQUE: Computed tomography (CT) of the chest, abdomen, pelvis as well as of the thoracic and lumb ar spine was performed with 100 mL Omnipaque-350 intravenous contrast. Automated exposure control and iterative reconstruction technique were employed. The dose-length product was 1027.86 mGy-cm. COMPARISON: CT abdomen pelvis dated 05/18/2022 FINDINGS: CHEST CT: Mild biapical pleural-parenchymal scarring. Additional dependent atelectasis in the bilateral lower l obes. No pneumonia, pulmonary edema, pleural effusion or pneumothorax. Heart size is normal. No peric ardial effusion. Thoracic aorta is normal in caliber with no dissection or acute traumatic aortic inj ury. No pathologically enlarged thoracic lymphadenopathy. ABDOMEN/PELVIS CT: 9 mm cyst in the left hepatic lobe. Gallbladder, spleen, pancreas and right adrenal gland are normal. Chronic coarse calcification and left adrenal gland likely sequela prior infection or hemorrhage. Th ere are parapelvic cysts at both kidneys. Moderate sigmoid cervical os without adjacent comparison to suggest diverticular colitis. Small bowel and appendix is normal. Bladder is normal. Uterus and bila teral adnexa are unremarkable. Abdominal aorta aorta is normal in caliber. No free intraperitoneal ga s or fluid. No pathologically enlarged abdominal or pelvic lymphadenopathy. No pelvic fractures. THORACIC SPINE CT: Mild thoracic levocurvature. Vertebral body heights are normal. No acute fracture. Moderate to severe disc height loss with degenerative endplate changes at multiple levels. LUMBAR SPINE CT: Alignment is normal. Vertebral body heights are normal. Lucent hemangioma the right side of the L1 ve rtebral body. No acute fracture. Mild disc height loss at L3-L4 through L5-S1. Moderate to severe low er lumbar predominant facet osteoarthritis. IMPRESSION: 1. No acute vascular or visceral organ injury or acute osseous abnormality in the chest, abdomen or p emerson. Reviewed, dictated and finalized at location B. RENTAL AGENT IMPRESSION: 1. No acute vascular or visceral organ injury or acute osseous abnormality in t he chest, abdomen or pelvis.
--- NOTE | 2024-02-20 15:14 | ECG_ITS ---
Test Date: 2024-02-20 15:12:31 Measurements Intervals [place] Rate: 82 P: 117 [place]: 140 QRS: -26 QRSD: 86 T: 0 QT: 366 QTc: 428 Interpretive Statements SINUS RHYTHM BORDERLINE LEFT AXIS DEVIATION [QRS AXIS < -20] NONSPECIFIC T-WAVE ABNORMALITY No previous ECG available for comparison Electronically Signed On 02-20-2024 15:38:46 [facility] [employer] by Ricky Smith M.D.
[2024-02-20 15:34] LABS: Basophils Absolute Auto 0.1 K/mm3 (0.0-0.1); Basophils Percent Auto 0.6 % (0.2-1.2); Eosinophils Absolute Auto 0.5 K/mm3 (0-0.3); Eosinophils Percent Auto 5.3 % (0-4.4); Hematocrit 43.4 % (37.0-47.0); Hemoglobin 14.5 g/dL (12.0-15.0); Immature Granulocyte Absolute 0.18 K/mm3 (0.00-0.031); Immature Granulocyte Percent A 1.9 % (0-0.5); Lymphocytes Absolute Auto 1.83 K/mm3 (0.9-3.2); Lymphocytes Percent Auto 19.8 % (18.3-44.2); Mean Corpuscular HGB Conc 33.4 g/dl (32-36); Mean Corpuscular Hemoglobin 31.3 pg (26-34); Mean Corpuscular Volume 93.7 fl (80-100); Mean Platelet Volume 8.9 fl (7.4-10.4); Monocytes Absolute Auto 0.5 K/mm3 (0.1-0.6); Monocytes Percent Auto 5.8 % (2.6-8.5); Neutrophils Absolute Auto 6.2 K/mm3 (1.3-6.7); Neutrophils Percent Auto 66.6 % (45.5-73.1); Platelet Count Result 255 k/mm3 (150-375); Red Blood Count 4.63 M/mm3 (4.2-5.4); Red Cell Distribution Width 12.7 % (11.5-14.5); White Blood Count 9.3 K/mm3 (4.5-10.0)
[2024-02-20 15:45] LABS: Alanine Aminotransferase 51 U/L (6-35); Albumin Level 4.5 g/dL (3.5-5.1); Alkaline Phosphatase 125 U/L (38-126); Anion Gap 11 mmol/L (4-12); Aspartate Amino Transferase 48 U/L (14-36); Bilirubin,Total 0.5 mg/dL (0.2-1.3); Blood Urea Nitrogen 19 mg/dL (7-17); Calcium 8.8 mg/dL (8.4-10.2); Carbon Dioxide 24 mmol/L (22-30); Chloride 106 mmol/L (98-107); Estimated CRCL calculation 75 ml/min; Estimated Glomerular Filt Rate > 60; Glucose 95 mg/dL (65-110); Potassium 3.6 mmol/L (3.4-5.0); Sodium 141 mmol/L (137-145)
[2024-02-20 15:47] LABS: Prothrombin Time 13.4 Seconds (11.1-14.7)
[2024-02-20 15:48] LABS: Partial Thromboplastin Time 25.1 Seconds (22.3-36.8)
[2024-02-20 15:56] LABS: Troponin I < 0.012 ng/mL (0.000-0.034)
--- NOTE | 2024-02-20 17:18 | ED.FALL ---
HPI - Fall General Chief Complaint: Fall Stated Complaint: fall Time Seen by Provider: 02/20/24 15:19 Source: patient Mode of arrival: EMS Limitations: no limitations History of Present Illness HPI Narrative: This is a 68 year old female that presents to the ER for a fall today. Reports she put a step ladder on top of a kids table. The step ladder slipped and she fell. Reports catching herself with her left wrist and falling onto her bottom. Reports low back pain, chest pain and left wrist pain. She does not believe she hit her head. She did not lose consciousness. Denies vomiting, focal numbness or weakness. Related Data Home Medications ?Medication ?Instructions ?Recorded ?Confirmed ?Last Taken ?Type latanoprost 0.005 % eye drops 1 drop ophthalmic (eye) DAILY 05/14/19 10/18/23 01/05/22 21:00 History cholecalciferol (vitamin D3) 25 25 mcg PO DAILY 07/21/21 10/18/23 01/05/22 08:00 History mcg (1,000 unit) capsule calcium carbonate (Calcium 600) 600 mg PO DAILY 02/24/22 10/18/23 Unknown History dorzolamide 22.3 mg-timolol 6.8 EACH EYE 10/18/23 10/18/23 Unknown History mg/mL eye drops Allergies Allergy/AdvReac Type Severity Reaction Status Date / Time levofloxacin Allergy Unknown Hallucinati Verified 02/20/24 15:14 ng Review of Systems Review of Systems: CONSTITUTIONAL: Denies fever CARDIOVASCULAR: Reports chest pain RESPIRATORY: Denies dyspnea. GASTROINTESTINAL: Denies vomiting MUSCULOSKELETAL: Reports back pain, joint pain, and myalgia. NEUROLOGIC: Denies numbness, or weakness. All systems reviewed & are unremarkable except as noted in HPI and below FOR[facility]LY [facility] Past Medical History Medical History Allergies Anxiety COVID-19 vaccine series completed GERD (gastroesophageal reflux disease) Hx of migraines IBS (irritable bowel syndrome) Surgical History Surgical History H/O neck surgery tumor on back of neck removed H/O tubal ligation Hx of foot surgery club foot as a child Family History Family History Father Pancreatic cancer Hypertension Diabetes mellitus Mother Hypertension Heart disease Grandparent Diabetes mellitus Depression Heart disease Breast cancer Other Family history of pancreatic cancer Social History Social History Social History: Former smoker from 19 years old to 22 years old Smoking packs per day: 0.25 Smoking cigarettes per day: 5.0 Years smoked: 3 Smoking pack-years: 0.75 Smoking status: Former smoker Tobacco type: cigarettes Second hand tobacco smoke exposure: No Smoking end date: 02/06/78 Alcohol intake: current Drinks per week: 14 Alcohol use details: 2 GLASSES WINE PER DAY Substance use: never Substance use type: does not use Do You Feel Safe in your Home?: Yes Lack of Transportation: No Lack of Food: Never True Current Housing: I Have Housing Concerned About Future Housing: No Difficulty Paying Gas/Electric Bills: No Difficulty Paying for Meds: No Currently Unemployed: No Education: Master's Degree or Higher Difficulty w/ Childcare or Family Care: No Living arrangements: with family Additional living arrangements comments: with mother Occupation/Education: retired Gender identity (if verbalized by the patient): Female Sexual Orientation (if Verbalized by the Patient): Straight or Heterosexual Spiritual care concerns: No Exam Narrative: GENERAL: Well-appearing, well-nourished, and in no acute distress. HEAD: Normocephalic, atraumatic. EYES: PERRLA and EOMI. ENT: Nares clear, no rhinorrhea or epistaxis. Mucous membranes moist. Oropharynx without tonsillar hypertrophy exudate or other lesions. Bilateral TMs pearly salgado non-bulging NECK: Supple. No adenopathy or masses. CHEST: Clear to auscultation. No respiratory distress. No wheezes rales or rhonchi HEART: Regular rate and rhythm. No murmur heard. Normal peripheral pulses. ABDOMEN: Soft, nontender, nondistended, normal active bowel sounds. EXTREMITIES: Normal range of motion, except decreased active ROM in the left wrist with contusion to the dorsal surface. No obvious deformity. Normal radial pulse. Normal sensation SKIN: Warm, dry, no rash. NEURO: No focal deficits. Alert and oriented x3. CN II-XII grossly intact PSYCH: Normal mood and affect Course Course Emergency Course: patient updated on workup and agrees with plan of care Vital Signs Vital signs: Vital Signs Temperature 99.2 F 02/20/24 15:01 Pulse Rate 79 02/20/24 15:01 Respiratory Rate 20 02/20/24 15:01 Blood Pressure 161/96 H 02/20/24 15:01 Pulse Oximetry 100 02/20/24 15:01 Oxygen Delivery Room Air 02/20/24 15:01 Temperature 99.2 F 02/20/24 15:07 Pulse Rate 82 02/20/24 17:35 Respiratory Rate 16 02/20/24 17:35 Blood Pressure 110/70 02/20/24 17:35 Pulse Oximetry 100 02/20/24 17:35 Oxygen Delivery Room Air 02/20/24 15:01 Procedures Orthopedic Splinting/Casting Injury #1: Splinting/Casting Date: 02/20/24 Side: left Upper Extremity Injury Location: wrist Splint: customized in ED OCL: volar Pre-Procedure Neuro Vascular Exam: normal Post-Procedure Neuro Vascular Exam: normal MDM - Fall MDM Narrative Medical decision making narrative: Patient presents to the emergency department after a fall from about 4 ft off of a ladder with chest wall pain, left wrist pain. Patient is neurologically intact. Her vitals are stable. CBC and metabolic panel without concerning findings. CT brain and cervical spine without acute findings. CT chest/abdomen/pelvis without acute posttraumatic findings. Left wrist x-ray shows nondisplaced fracture of the distal metaphysis of the left radius. Possible triquetral fracture. Patient placed in volar splint. Will be given follow-up with Orthopedics. She was updated on her workup and agrees with plan of care. She was given warnings to return to the ER Differential Diagnosis Differential diagnosis: Likely compression fracture, concussion without loss of consciousness and other (Wrist fracture, intra-abdominal trauma, intrathoracic trauma) Lab Data Attestation: I reviewed the patient's lab results. 02/20/24 15:27 02/20/24 15:27 Labs: Lab Results 02/20/24 Range/Units 15:27 WBC 9.3 (4.5-10.0) K/mm3 RBC 4.63 (4.2-5.4) M/mm3 Hgb 14.5 (12.0-15.0) g/dL Hct 43.4 (37.0-47.0) % MCV 93.7 (80-100) fl MCH 31.3 (26-34) pg MCHC 33.4 (32-36) g/dl RDW 12.7 (11.5-14.5) % Plt Count 255 (150-375) k/mm3 MPV 8.9 (7.4-10.4) fl Immature Gran % (Auto) 1.9 H (0-0.5) % Neut % (Auto) 66.6 (45.5-73.1) % Lymph % (Auto) 19.8 (18.3-44.2) % Liberty % (Auto) 5.8 (2.6-8.5) % Eos % (Auto) 5.3 H (0-4.4) % Baso % (Auto) 0.6 (0.2-1.2) % Lymph # (Auto) 1.83 (0.9-3.2) K/mm3 Liberty # (Auto) 0.5 (0.1-0.6) K/mm3 Eos # (Auto) 0.5 H (0-0.3) K/mm3 Baso # (Auto) 0.1 (0.0-0.1) K/mm3 Abs Immat Gran (auto) 0.18 H (0.00-0.031) K/mm3 Absolute Neuts (auto) 6.2 (1.3-6.7) K/mm3 Absolute Nucleated RBC 0.000 (0.0-0.012) K/mm3 Nucleated RBC % 0.0 (0.0-0.2) % PT 13.4 (11.1-14.7) Seconds INR 1.0 APTT 25.1 (22.3-36.8) Seconds Sodium 141 (137-145) mmol/L Potassium 3.6 (3.4-5.0) mmol/L Chloride 106 (98-107) mmol/L Carbon Dioxide 24 (22-30) mmol/L Anion Gap 11 (4-12) mmol/L BUN 19 H (7-17) mg/dL Creatinine 0.55 L (0.7-1.0) mg/dL Estim Creat Clear Calc 75 ml/min Estimated GFR > 60 (59 - ) Glucose 95 (65-110) mg/dL Calcium 8.8 (8.4-10.2) mg/dL Total Bilirubin 0.5 (0.2-1.3) mg/dL AST 48 H (14-36) U/L ALT 51 H (6-35) U/L Alkaline Phosphatase 125 (38-126) U/L Troponin I < 0.012 (0.000-0.034) ng/mL Total Protein 8.0 (6.3-8.2) g/dL Albumin 4.5 (3.5-5.1) g/dL Imaging Data Radiologist's impression: ITS Impressions Wrist X-Ray 02/20/24 15:54 IMPRESSION: Nondisplaced fracture in the distal metaphysis of the left radius. Highly suggestive triquetral fracture. Head CT 02/20/24 16:46 IMPRESSION: No acute intracranial findings. Cervical Spine CT 02/20/24 16:49 IMPRESSION: 1. Moderate cervical spondylosis with no acute osseous abnormality. Chest/Abdomen/Pelvis/Spine CT 02/20/24 16:55 IMPRESSION: 1. No acute vascular or visceral organ injury or acute osseous abnormality in the chest, abdomen or pelvis. ECG Data EKG #1: ECG completion date: 02/20/24 EKG Interpretation: normal rate, sinus rhythm, no ST changes and normal QT Critical Care Time Critical Care Time Critical Care Time: No Discharge Plan Discharge Clinical Impression: Left radial fracture Qualifiers: Encounter type: initial encounter Radius location: distal Fracture type: closed Fracture morphology: unspecified fracture morphology Qualified Code(s): S52.502A - Unspecified fracture of the lower end of left radius, initial encounter for closed fracture Chest wall muscle strain Qualifiers: Encounter type: initial encounter Qualified Code(s): S29.011A - Strain of muscle and tendon of front wall of thorax, initial encounter Patient Disposition: Home, Self-Care Condition: Stable Instructions: Muscle Strain (ED), Wrist Fracture in Adults (ED) Additional Instructions: Return to the ER if you experience fever, shortness of breath, redness and swelling of your extremity, numbness or any other symptoms that are concerning to you Wear splint. No weight on the affected extremity. Ice and elevate extremity. Pain medication as needed and directed. Follow up with orthopedics for further care. Patient Language: Palauan Prescriptions: New hydrocodone-acetaminophen 5-325 mg tablet 1 tablet PO Q6H PRN (Reason: pain) Qty: 20 0RF No Action latanoprost 0.005 % drops 1 drop EACH EYE DAILY cholecalciferol (vitamin D3) 25 mcg (1,000 unit) capsule 25 mcg PO DAILY calcium carbonate [Calcium 600] 600 mg calcium (1,500 mg) tablet 600 mg PO DAILY dorzolamide-timolol 22.3-6.8 mg/mL drops EACH EYE escitalopram oxalate 10 mg tablet 10 mg PO DAILY Qty: 90 3RF azithromycin 250 mg tablet See Rx Instructions PO .COMPLEX Qty: 6 0RF Rx Instructions: For 250 mg dose pack: take 500 mg today (day 1), then 250 mg for 4 days (days 2-5) PO Follow-up/Referrals: Azeem Acuña MD [Physician] - Susan Wan MD [Primary Care Provider] -
[2024-02-20] MEDS: MORPHINE SULFATE (*CRX) 4 MG/ML INJ IV PUSH (17:35)
[2024-02-20] MEDS: ONDANSETRON INJ 4 MG/2 ML VIAL IV PUSH (17:35)
--- NOTE | 2024-02-20 18:47 | PC.NURSE ---
1720 Pt assisted up to BSC with x2 assist. While voiding pt states she felt like I am going to pass out . Pt assist back to bed feeling subsided.
== END 2024-02-20 19:39 | disposition home or self-care (01) ==
PROVIDERS: Emergency Provider Physician Assistant; PCP Family Medicine
DX: S52.502A Unspecified fracture of the lower end of left radius, initial encounter for closed fracture (principal); S29.011A Strain of muscle and tendon of front wall of thorax, initial encounter; F41.9 Anxiety disorder, unspecified; K21.9 Gastro-esophageal reflux disease without esophagitis; W11.XXXA Fall on and from ladder, initial encounter; R07.9 Chest pain, unspecified
CPT/HCPCS: 36415; 70450; 71260; 72125; 72129; 72132; 73110; 74177; 80053; 84484; 85025; 85610; 85730; 93005; 96374; 96375; 99284; J2270; J2405; Q9967

== ENCOUNTER 2024-05-28 09:30 | Outpatient (RCR) | payer MEDICARE, OTHER, SELFPAY ==
--- NOTE | 2024-05-02 10:08 | OTOPEVAL1 ---
Assessment and note entered by Richie Robles, HEENA/Norma, CHT OT Evaluation Information Assessment Status Evaluation Diagnosis S62.102A fracture of unspecified carpal bone, left wrist; S52.532A Colles' fx Subjective Information Patient is about 10 weeks s/p left wrist fracture. 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 She reports residual pain, stiffness, and weakness. She is retired and right handed. Reported Pain Level Pain Score 0: Self Report Additional Pain Score Comments No pain at rest. Pain increases with ROM/use. She reports left thumb is the most painful. Assessment OT Clinical Summary Patient referred to OT with dx of left distal radius fracture, non surgical. Patient presents with residual stiffness, weakness, and pain that restricts return of functional use for ADLs. Skilled OT indicated to maximize functional ROM, strength, and use of her left UE. Plan of Care Interventions Therapeutic Exercise,Manual Therapy,Hot Pack/Cold Pack,Paraffin OT Services Indicated Yes These treatments will address the objective and functional deficits as defined above. The patient will be advanced safely and appropriately in order for the patient to progress towards his/her prior level of function. Additional exercises will be introduced and as well as a comprehensive home exercise program upon discharge, if needed, ?to ensure carryover of functional gains achieved in the clinic. This treatment plan has been reviewed and agreement upon by the patient.
--- NOTE | 2024-05-02 10:09 | OPREHPOC ---
Outpatient Therapy Plan of Care This is a Multidisciplinary Plan of Care that may contain components documented by all disciplines (PT, OT, and ST.) OT Problem 1 OT Problem #1 Knowledge Deficit OT Goal 1 Goal / Goal Update Patient to be independent with HEP. Target Visit 5 OT Problem 2 OT Problem #2 Pain OT Goal 1 Goal / Goal Update Patient to report reduced pain in the left wrist/ hand to 2/10 or less during ADLs. Target Visit 5 OT Problem 3 OT Problem #3 Impaired Strength OT Goal 1 Goal / Goal Update Patient to improve functional strength of the left UE for ADLs as measured by: - being able to progress to 2 lb for wrist strengthening in all planes - progressing to 30 lbs. puppy sitter strength on the left Target Visit 5
--- NOTE | 2024-05-28 10:13 | OTOPDC ---
Assessment and note entered by Richie Robles, OTR/L, CHT OT D/C Note 05/28/24 Diagnosis S62.102A fracture of unspecified carpal bone, left wrist; S52.532A Colles' ICD-10 Condition Codes (OT) Joint stiffness of left wrist M25.632,Pain in left wrist M25.532 Subjective Information Patient reports functional progress since the start of care. She reports she has resumed functional use of the left UE, noticing some residual pain in the base of her thumb, which makes gripping large diameter objects more difficult. She has resumed cooking, dishes, house chores, etc. She has progressed to 3 lb. strengthening of the wrist. Reports she notices some difficulty when trying to push herself up off the floor. Reported Pain Level Pain Score 0: Self Report Assessment OT Clinical Summary Patient referred to OT with dx of left distal radius fracture, non surgical. Patient has made excellent progress with improved functional flexibility, strength, and use of her left hand/UE . Reviewed all materials today and she is independent with her HEP. Recommending she continue strengthening as she continues to have some residual weakness. D/C OT with HEP. Plan of Care OT Services Indicated No
== END 2024-05-28 10:48 | disposition home or self-care (01) ==
LOC: ANHOT 09:30
PROVIDERS: PCP Family Medicine; Visit Provider Student in an Organized Health Care Education/Training Program
DX: S62.102A Fracture of unspecified carpal bone, left wrist, initial encounter for closed fracture (principal); S52.532A Colles' fracture of left radius, initial encounter for closed fracture
CPT/HCPCS: 97018; 97110; 97140

== ENCOUNTER 2024-11-02 12:56 | Emergency (ER) | payer MEDICARE, OTHER, SELFPAY ==
--- NOTE | ~2024-11-02 | XR_ITS ---
Examination: XR ankle LT min 3V, XR foot LT min 3V Clinical History: pain after fall 2 days ago Comparison: None Technique: 4 views left ankle, 4 views left foot Findings/impression: Left ankle: 1. No acute fracture or dislocation left ankle. 2. Diffuse soft tissue swelling. 3. Elongated calcification or ossification within posterior lower leg soft tissues, probably prior injury Left foot: 1. Question fracture of tiny ossicle along anterolateral calcaneus. 2. Otherwise no acute fracture or dislocation left foot. 3. Diffuse soft tissue swelling. Reviewed, dictated and finalized at location R.
[2024-11-02 13:07] VITALS: BP 138/84; PULSE 93; RESP 16; TEMP 36.4; O2SAT 98
--- NOTE | 2024-11-02 13:09 | ED.LOWEXIN ---
HPI - Extremity Injury (Lower) General Chief Complaint: Extremity Injury, Lower Stated Complaint: Injured L Foot Patient presents to the [facility] with pain, bruising, swelling to left foot and ankle that began 2-3 days after injury. Patient reports taking ibuprofen the 1st day and has been using crutches to get around. Denies numbness or tingling foot or toes. 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 Related Data Home Medications ?Medication ?Instructions ?Recorded ?Confirmed ?Last Taken ?Type latanoprost 0.005 % eye drops 1 drop ophthalmic (eye) DAILY 05/14/19 10/31/24 01/05/22 21:00 History cholecalciferol (vitamin D3) 25 25 mcg PO DAILY 07/21/21 10/31/24 01/05/22 08:00 History mcg (1,000 unit) capsule calcium carbonate (Calcium 600) 600 mg PO DAILY 02/24/22 10/31/24 Unknown History dorzolamide 22.3 mg-timolol 6.8 EACH EYE 10/18/23 10/31/24 Unknown History mg/mL eye drops brimonidine 0.1 % eye drops drp RIGHT EYE 09/26/24 10/31/24 Unknown History netarsudil 0.02 % eye drops drp 11/02/24 Unknown History (Rhopressa) Allergies Allergy/AdvReac Type Severity Reaction Status Date / Time levofloxacin Allergy Unknown Hallucinati Verified 10/31/24 08:10 ng Review of Systems Constitutional: Constitutional: Reports as per HPI, Denies chills, Denies fatigue, Denies fever(s) and Denies weakness Eyes: Eyes: Reports no additional eye complaints Cardiovascular: Cardiovascular: Reports no additional cardiovascular complaints Respiratory: Respiratory: Reports no additional respiratory complaints Gastrointestinal: Gastrointestinal: Reports no additional gastrointestinal complaints Genitourinary: Genitourinary: Reports no additional female genitourinary complaints Musculoskeletal: Musculoskeletal: Reports as per HPI, Reports arthralgias, Reports joint swelling and Denies muscle cramps Integumentary/Breasts: Skin/Breast: Reports as per HPI, Denies pruritus, Denies rash and Denies skin ulcer Neurologic: Reports as per HPI, Denies numbness and Denies weakness Psychiatric: Psychiatric: Reports no additional psychiatric complaints Endocrine: Endocrine: Reports no additional endocrine complaints Hematologic/Lymphatic: Hematologic/Lymphatic: Reports no additional hematologic/lymphatic complaints Allergic/Immunologic: Allergic/Immunologic: Reports no additional allergic/immunologic complaints PMFSH Past Medical History Medical History Hx of migraines IBS (irritable bowel syndrome) GERD (gastroesophageal reflux disease) Allergies COVID-19 vaccine series completed Anxiety Surgical History Surgical History Hx of foot surgery club foot as a child H/O neck surgery tumor on back of neck removed H/O tubal ligation Family History Family History Father Pancreatic cancer Hypertension Diabetes mellitus Mother Hypertension Heart disease Grandparent Diabetes mellitus Depression Heart disease Breast cancer Other Family history of pancreatic cancer Social History Social History (Updated 10/31/24 @ 08:25 by Susanna Crowe CMA) Social History: Former smoker from 19 years old to 22 years old Smoking packs per day: 0.25 Smoking cigarettes per day: 5.0 Years smoked: 3 Smoking pack-years: 0.75 Smoking status: Former smoker Tobacco type: cigarettes Second hand tobacco smoke exposure: No Smoking end date: 02/06/78 Alcohol intake: current Drinks per week: 21 Alcohol use details: 3 GLASSES WINE PER DAY Substance use: never Substance use type: does not use Lack of Transportation: No Lack of Food: Never True Current Housing: I Have Housing Concerned About Future Housing: No Difficulty Paying Gas/Electric Bills: No Difficulty Paying for Meds: No Currently Unemployed: No Education: Master's Degree or Higher Difficulty w/ Childcare or Family Care: No Living arrangements: with family Additional living arrangements comments: with mother Occupation/Education: retired Gender identity (if verbalized by the patient): Female Sexual Orientation (if Verbalized by the Patient): Straight or Heterosexual Spiritual care concerns: No Exam Const: General: healthy appearing and no acute distress Nutritional Appearance: well nourished Orientation/consciousness: patient oriented x3 Limitations: no limitations Resp: Effort & Inspection: normal respiratory effort Auscultation: clear to auscultation bilaterally Cardio: Rate: regular rate Rhythm: regular rhythm Skin: Rashes: no rashes Wounds: no wounds Neuro: General: patient oriented x3 and moves all extremities Speech: normal speech Gait exam (Neuro): gait abnormal Extrem: Left lower extremity: ankle Details: abnormal to inspection, tenderness, swelling, abnormal ROM and ecchymosis and foot Details: normal capillary refill, abnormal to inspection, tenderness, toes with normal ROM, edema, ecchymosis and vascular exam Details: dorsalis pedis pulse present and posterior tibial pulse present Psych: Mental Status: mental status grossly normal Affect: normal affect Attitude: cooperative Course Course Level of Care: Express Care Visit Vital Signs Vital signs: Vital Signs Temperature 97.6 F 11/02/24 13:07 Pulse Rate 93 11/02/24 13:07 Respiratory Rate 16 11/02/24 13:07 Blood Pressure 138/84 11/02/24 13:07 Pulse Oximetry 98 11/02/24 13:07 Temperature 97.6 F 11/02/24 13:07 Pulse Rate 93 11/02/24 13:07 Respiratory Rate 16 11/02/24 13:07 Blood Pressure 138/84 11/02/24 13:07 Pulse Oximetry 98 11/02/24 13:07 MDM - Extremity Injury (Lower) MDM Narrative Medical decision making narrative: X-ray foot and ankle. possible fracture noted. will place in crutches and post op shoe. Recent fracture noted with treatment with Dr Acuña- will return to this office for foot fracture. The patient was evaluated by myself in the [facility] care. History is obtained from patient who is an independent historian and physical exam was performed. Available medical records were reviewed at this time. Exam findings show no acute concerns or changes; patient is non-toxic appearing and is in no distress. Patient is appropriate for outpatient treatment and follow-up. I have evaluated and discussed social determinants of health with the patient that could potentially impact subsequent diagnosis and treatment plans. Differential diagnosis and treatment plan were discussed with the patient. Patient agrees with discussion and after shared medical decision making agrees with plan of care. All questions were answered to the patient's satisfaction. Differential Diagnosis Differential diagnosis: Likely ankle sprain and strain, puncture wound of foot, fracture of toe and ankle fracture Medical Records Attestation: I reviewed the patient's medical records. Imaging Data Radiologist's impression: Left ankle: 1. No acute fracture or dislocation left ankle. 2. Diffuse soft tissue swelling. 3. Elongated calcification or ossification within posterior lower leg soft tissues, probably prior injury Left foot: 1. Question fracture of tiny ossicle along anterolateral calcaneus. 2. Otherwise no acute fracture or dislocation left foot. 3. Diffuse soft tissue swelling. Reviewed, dictated and finalized at location R. Discharge Plan Discharge Clinical Impression: Closed fracture of left calcaneus Patient Disposition: Home Condition: Stable Instructions: Antibiotic Form, Foot Fracture in Adults (ED) Additional Instructions: There is a fracture shown your x-ray. We have placed you in an immobilization keep this all times. May remove to shower. Call the orthopedic physician you have been given to schedule an appointment as soon as possible. Ensure to take a disc of your x-ray results with you. Ice to the area 15-20 minutes 4-6 times a day until follow up with orthopedics. Minimize activities and rest the affected area as much as possible. 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 You may take over the counter tylenol and ibuprofen as needed for pain. May use the tramadol as needed for severe pain. This medication can make you drowsy do not drive, drink alcohol or operate heavy machinery while taking this medication. If you notice significantly increased pain, redness, and numbness, or tingling does to the emergency room for further evaluation of symptoms. Patient Language: Chinese Prescriptions: No Action Rhopressa 0.02 % drops brimonidine 0.1 % drops RIGHT EYE latanoprost 0.005 % drops 1 drop EACH EYE DAILY cholecalciferol (vitamin D3) 25 mcg (1,000 unit) capsule 25 mcg PO DAILY calcium carbonate [Calcium 600] 600 mg calcium (1,500 mg) tablet 600 mg PO DAILY dorzolamide-timolol 22.3-6.8 mg/mL drops EACH EYE escitalopram oxalate 10 mg tablet 10 mg PO DAILY Qty: 90 3RF Follow-up/Referrals: Azeem Acuña MD [Physician, Orthopedics] Susan Wan MD [Primary Care Provider, [facility]] Time of Disposition: 13:43
== END 2024-11-02 13:53 | disposition home or self-care (01) ==
PROVIDERS: Emergency Provider Nurse Practitioner Family; PCP Family Medicine
DX: S92.002A Unspecified fracture of left calcaneus, initial encounter for closed fracture (principal); X58.XXXA Exposure to other specified factors, initial encounter; K21.9 Gastro-esophageal reflux disease without esophagitis; F41.9 Anxiety disorder, unspecified; Z87.891 Personal history of nicotine dependence
CPT/HCPCS: 73610; 73630; 99214; G0463

== ENCOUNTER 2024-12-17 08:16 | Outpatient (CLI) | payer MEDICARE, OTHER, SELFPAY ==
--- NOTE | ~2024-12-17 | DEXA_ITS ---
Bone Density Report Name: BRENT STARR Age: 69 Sex: Female Ethnicity: White Date of : 1955 Indication: osteopenia; parental hip fracture; height loss; Referring Provider: ZAFAR GONZALEZ Study: Bone densitometry was performed. Exam Date: December 17, 2024 Accession number: [id number] Bone Density: Region BMD T-score Z-score Classification AP Spine(L1-L4) 0.857 -1.7 0.3 Osteopenia Femoral Neck (Left) 0.765 -0.8 1.0 Normal Total Hip (Left) 0.806 -1.1 0.3 Osteopenia Femoral Neck (Right) 0.742 -1.0 0.7 Normal Total Hip (Right) 0.879 -0.5 0.9 Normal Total Hip Mean 0.843 -0.8 0.6 Normal World Health Organization criteria for BMD impression classify patients as: Normal (T-score at or above -1.0), Osteopenia (T-score between -1.0 and -2.5), or Osteoporosis (T-score at or below -2.5). 10-year Fracture Risk(1): Major Osteoporotic Fracture 17% Hip Fracture 2.0% Reported Risk Factors: [place] (), Neck BMD=0.742, BMI=26.9, parental fracture, alcohol use (1) FRAX(R) Version 3.08. Fracture probability calculated for an untreated patient. Fracture probability may be lower if the patient has received treatment. Previous Exams: -- Region Exam Age BMD T-score BMD Change BMD Change Date g/cm2 vs Baseline vs Previous -- AP Spine (L1-L4) 12/17/2024 69 0.857 -1.7 -11.4%* 1.3% 07/27/2021 66 0.846 -1.8 -12.5%* -4.0%* 04/20/2018 62 0.882 -1.5 -8.8%* -8.8%* 05/05/2008 52 0.967 -0.7 Total Hip(Left) 12/17/2024 69 0.806 -1.1 -11.6%* -4.1%* 07/27/2021 66 0.841 -0.8 -7.8%* -2.0% 04/20/2018 62 0.858 -0.7 -6.0%* -6.0%* 05/05/2008 52 0.912 -0.2 Total Hip(Right) 12/17/2024 69 0.879 -0.5 -10.0%* -1.7% 07/27/2021 66 0.894 -0.4 -8.5%* -1.7% 04/20/2018 62 0.909 -0.3 -6.9%* -6.9%* 05/05/2008 52 0.977 0.3 -- *Denotes significance at 95% confidence level, LSC for AP Spine = 0.022 g/cm2, LSC for Total Hip = 0.027 g/cm2 Clinical Information Provided by Patient: Parent has had a hip fracture Has 3 or more alcoholic drinks per day Has used the following medications: Vitamin D, Calcium Patient maximum height was 66 Menopause Age: 55 Onset of menses at age 17 Number of children 3 Impression: The patient has low bone mass, based on the Total Spine T-score. The patient has an estimated ten-year risk of hip fracture of 2% and an estimated ten-year risk of major fracture of 17%, based on the WHO FRAX algorithm. The patient has risk factors, including: parental hip fracture, excessive alcohol use. The BMD for the Total Hip(Left) decreased, changing by -4.1% since the last DXA exam. Discussion: BONE DENSITY IS LOW AT ONE OR MORE SKELETAL SITES. This patient's lowest T-score is low at one or more skeletal sites. It meets the World Health Organization's (WHO) criteria for ?low bone mass? (T-score between -1.0 and -2.5). The patient's 10-year risk of fracture as calculated by FRAX is less than the threshold where pharmacological therapy is recommended by the National Osteoporosis Foundation (NOF). However, all treatment decisions require clinical judgment and consideration of individual patient factors, including patient preferences, comorbidities, previous drug use, risk factors not captured in the FRAX model (e.g., frailty, falls, vitamin D deficiency, increased bone turnover, interval significant decline in bone density) and possible under or overestimation of fracture risk by FRAX. The patient should follow a healthful lifestyle (good nutrition with adequate calcium and vitamin D, and appropriate weight-bearing exercise). Follow-Up: Consider repeating this study in 2 years to reassess this patient's status, or sooner if there is some new clinical indication. Reported by: JOHANA on 12/17/2024 8:35:00 AM. Reviewed, dictated and finalized at location A.
== END 2024-12-17 08:17 | disposition home or self-care (01) ==
LOC: MICIMG 08:17
PROVIDERS: PCP Family Medicine; Visit Provider Family Medicine
DX: Z78.0 Asymptomatic menopausal state (principal); M85.88 Other specified disorders of bone density and structure, other site; M85.852 Other specified disorders of bone density and structure, left thigh
CPT/HCPCS: 77080